=== PATIENT | male | born 1955 | race Caucasian/White ===

== ENCOUNTER 2023-01-09 13:42 | Emergency (ER) | payer MEDICARE, SELFPAY ==
[2023-01-09] VITALS (18 sets, daily range): BP systolic 124–208; BP diastolic 59–110; PULSE 70–123; RESP 15–28; O2SAT 89–98; BMI 35.9
--- NOTE | 2023-01-09 13:49 | CT_ITS ---
FINAL REPORT CLINICAL HISTORY: fall, head trauma on AC COMPARISON: None FINDINGS: Axial images of the head were obtained without contrast. Coronal reformatted images were also obtained. This study was performed with techniques to keep radiation doses as low as reasonably achievable (ALARA). Individualized dose reduction techniques using automated exposure control or adjustment of mA and/or kV according to the patient''s size were employed. There is motion artifact on many of the images decreasing sensitivity of this exam. There is generalized age-appropriate atrophy. Periventricular low-attenuation areas are seen consistent with mild chronic ischemic changes. There is no evidence of intracranial hemorrhage or mass. There is no definite evidence of acute infarct. There is no evidence of shift of the midline structures. No skull abnormality is seen on the bone window images. There is mild mucosal thickening of the right maxillary sinus. IMPRESSION: Motion artifact on many of the images decreases sensitivity of this exam. No definite acute intracranial abnormality identified. Atrophy and mild periventricular chronic ischemic changes. Reviewed, Interpreted and Dictated by Zeb Koroma III, MD Transcribed by Annalee Grossman Authenticated and [facility]
--- NOTE | 2023-01-09 13:49 | CT_ITS ---
FINAL REPORT CLINICAL HISTORY: fall, head trauma COMPARISON: None FINDINGS: Axial CT images of the cervical spine were obtained without contrast. Sagittal and coronal reformatted images were also obtained. This study was performed with techniques to keep radiation doses as low as reasonably achievable (ALARA). Individualized dose reduction techniques using automated exposure control or adjustment of mA and/or kV according to the patient''s size were employed. There is no evidence of fracture or dislocation. The bony alignment is normal. There is [id number] degenerative change. Multilevel osteophytes are noted with neural foraminal narrowing. There is mild central canal stenosis at C4-5 and C5-6. No paraspinous soft tissue abnormality is seen. Limited images of the upper thorax demonstrate moderate emphysema. There is abnormal soft tissue in the right apex favored to represent scar. IMPRESSION: No fracture or acute bony abnormality identified. Abnormal soft tissue right apex favored to represent scar. Follow-up CT chest in 6 months may be helpful. Reviewed, Interpreted and Dictated by Zeb Koroma III, MD Transcribed by Annalee Grossman Authenticated and [facility]
--- NOTE | 2023-01-09 13:53 | XR_ITS ---
FINAL REPORT CLINICAL HISTORY: Chest pain, right shoulder pain COMPARISON: None FINDINGS: A single portable view of the chest was obtained. Left subclavian pacer is present. Cardiomegaly is noted. Mild bibasilar opacities are favored to represent atelectasis. The bony thorax is intact. There is anterior dislocation of the right humerus at the glenohumeral joint. The left shoulder is incompletely imaged and may be dislocated as well. IMPRESSION: Mild bibasilar opacities, favor atelectasis. Anterior dislocation right humerus. Left shoulder incompletely imaged, may be dislocated as well. Reviewed, Interpreted and Dictated by Zeb Koroma III, MD Transcribed by Annalee Grossman Authenticated and [facility]
[2023-01-09 14:01] LABS: Basophils # 0.1 K/mm3 (0-0.2); Basophils % 0.4 % (0.1-2.0); Eosinophils # 0.3 K/mm3 (0.0-0.4); Eosinophils % 2.1 % (0.1-12.0); Hemoglobin 13.8 g/dL (12.2-16.2); Lymphocytes # 1.4 K/mm3 (0.7-4.5); Lymphocytes % 11.8 % (10-50); Mean Corpuscular Hemoglobin 32.3 pg (27.0-31.2); Mean Platelet Volume 8.2 fl (7.4-10.4); Monocytes # 0.6 K/mm3 (0.1-1.0); Monocytes % 5.3 % (1.7-9.3); Neutrophils # 9.7 K/mm3 (1.8-7.8); Neutrophils % 80.4 % (37.0-80.0); Platelet Count 203 K/mm3 (142-424); Red Blood Count 4.28 M/mm3 (4.20-5.40); Red Cell Distribution Width 15.7 % (11.5-17.5)
[2023-01-09 14:03] LABS: Chloride 108 mmol/L (98-107)
[2023-01-09 14:04] LABS: Potassium 4.7 mmoL/L (3.5-5.1); Sodium 142 mmol/L (136-145)
[2023-01-09 14:06] LABS: Alanine Aminotransferase 36 U/L (12-78); Aspartate Amino Transferase 62 U/L (14-36); Blood Urea Nitrogen 15 mg/dl (7-17); Creatinine Clearance Estimated 88 mL/min (50-200); Estimated Glomerular Filt Rate 45 ml/min (>60); GFR (African American) 54 ML/MIN (>60)
[2023-01-09 14:07] LABS: Albumin Level 4.1 g/dl (3.5-5.0); Albumin/Globulin Ratio 1.2 (1.1-1.8); Alkaline Phosphatase 105 U/L (38-126); Anion Gap 11.7 mEq/L (5-15); Bilirubin,Total 0.2 mg/dl (0.2-1.3); Calcium 8.2 mg/dl (8.4-10.2); Carbon Dioxide 27 mmol/L (22.0-30.0); Globulin 3.5 g/dL (1.3-3.2); Glucose 124 mg/dl (74-100); Total Protein,Serum 7.6 g/dl (6.3-8.2)
--- NOTE | 2023-01-09 14:07 | ECG_ITS ---
APPROVED REPORT Exam: Resting ECG HR:76 bpm ECG Measurements Heart Rate 76 AXES AZ 182 P 75 QRSd 194 QRS 45 QT 449 T 197 QTc 479 Conclusion ELECTRONIC VENTRICULAR PACEMAKER ABNORMAL RHYTHM ECG UNCONFIRMED REPORT Electronically signed by : Pablo Manning MD 01/10/2023 14:48:19
[2023-01-09 14:11] LABS: Activated Partial Thrombo Time 51.4 seconds (22.5-28.5)
--- NOTE | 2023-01-09 14:16 | HMH.EDGENADL ---
Discharge Plan Disposition Patient Disposition: Home, Self-Care Chief Complaint: Fall Referrals Follow up/Referrals: Xena Bernabe MD [Primary Care Provider] - See instructions Filipe Fine DO [Staff Physician] - See instructions Activity Restrictions/Add. Instructions Additional Instructions/Restrictions: At this time is felt you are safe to be discharged home. If new or worsening symptoms please do not hesitate to return the emergency department. Please follow-up with your family doctor in 7 to 10 days to see if your sutures are ready for removal. Please wear your sling and gradual follow-up with orthopedics for your dislocated shoulder which was put back into its joint today. Clinical Impressions Clinical Impression: ETOH abuse, Anterior shoulder dislocation, Forehead laceration Discharge ED Provider: Musa Samuels General Adult HPI <Josesito Paredes MD - Last Filed: 01/09/23 15:36> General Chief complaint: Fall Stated complaint: fall Time Seen by Provider: 01/09/23 13:49 Mode of Arrival: EMS Source of Information: Patient Limitations: No Limitations Description of Symptoms (Recalled from ER Triage Doc. by RN): Patient was brought in via [facility]. EMS was called by patients for an apparent fall. reports she left the house 2 hours prior to coming home and finding patient down. When EMS arrived patient was face down on the ground. Patient reports he has been drinking beer and whiskey today. Patient does take coumadin for AFIB. Patient does have a laceration above his right eye. History of Present Illness HPI narrative: 67-year-old male history of hypertension, hyperlipidemia, CAD, A-fib on warfarin, [place], CHF status post pacemaker defibrillator placement, presenting with intoxication and head trauma. EMS was called. Patient was left at home when his went to the grocery store. returned, patient was facedown and asleep versus unconscious. EMS was called and brought patient to the ER. Initially combative, but patient noncombative on arrival. Also admits to significant alcohol use. Confused, oriented only to person, complaining of right shoulder pain and right forehead pain, but denies blurry vision, double vision, nausea or vomiting, chest pain or shortness of breath. Does not remember the incident. Related Data Allergies Allergy/AdvReac Type Severity Reaction Status Date / Time No Known Allergies Allergy Verified 01/09/23 13:53 PFSH <Josesito Paredes MD - Last Filed: 01/09/23 15:36> [facility] Disclaimer: The information contained in this section may have been updated after the patient was seen, as this information can be updated by other users. Social History (Updated 01/09/23 @ 15:35 by Josesito Paredes MD) Smoking Status: Unknown if ever smoked alcohol intake: current current occupational status: unemployed Travel in the last 8 weeks: None <Josesito Paredes MD - Last Filed: 01/09/23 15:36> ROS Obtained: Yes All systems reviewed & no additional complaints except as documented Physical Exam <Josesito Paredes MD - Last Filed: 01/09/23 15:36> General General appearance: alert, in no apparent distress and appears intoxicated Head Head exam: normocephalic and other (2 cm laceration overlying right eyebrow) Eye Eye exam: Present normal appearance, PERRL, EOMI and conjunctival redness ENT ENT exam: Present mucous membranes moist Neck Neck exam: Present normal inspection, full ROM and trachea midline; Absent tenderness Respiratory Respiratory exam: Present wheezes (Bilaterally); Absent normal lung sounds bilaterally, respiratory distress, stridor, accessory muscle use or prolonged expiratory phase Cardiovascular Cardiovascular exam: Present regular rate and irregular rhythm Abdominal Exam Abdominal exam: Present soft; Absent distention, tenderness, guarding, rebound, rigidity or normal bowel sounds Extremities Exam Extremities exam: Present tenderness (Right shoulder posteriorly without outwar
[2023-01-09 14:19] LABS: INR 4.48 (0.9-1.1); Prothrombin Time 43.8 seconds (9.2-12.1)
[2023-01-09 14:30] LABS: Troponin I 0.02 ng/ml (0.00-0.034)
--- NOTE | 2023-01-09 17:03 | XR_ITS ---
PROCEDURE INFORMATION: Exam: XR Right Humerus Exam date and time: 01/09/2023 5:30 PM Age: 67 years old Clinical indication: Pain; Upper arm; Right TECHNIQUE: Imaging protocol: Radiologic exam of the right humerus. Views: 2 or more views. COMPARISON: CR XR CHEST PORTABLE 01/09/2023 2:38 PM FINDINGS: Bones/joints: Anterior inferior dislocation of the humerus from the glenohumeral joint. No displaced fracture fragments. Mild degenerative change of the acromioclavicular joint. Soft tissues: Normal. IMPRESSION: Anterior inferior dislocation of the humerus from the glenohumeral joint.
--- NOTE | 2023-01-09 17:03 | XR_ITS ---
PROCEDURE INFORMATION: Exam: XR Right Shoulder Exam date and time: 01/09/2023 5:30 PM Age: 67 years old Clinical indication: Pain; Shoulder; Right TECHNIQUE: Imaging protocol: Radiologic exam of the right shoulder. Views: 2 or more views. COMPARISON: CR XR CHEST PORTABLE 01/09/2023 2:38 PM FINDINGS: Bones/joints: Anterior inferior dislocation of the humerus from the glenohumeral joint. No displaced fracture fragments. Mild degenerative change of the acromioclavicular joint. Lungs: Suture material in the right lung. Soft tissues: Normal. IMPRESSION: Anterior inferior dislocation of the humerus from the glenohumeral joint.
--- NOTE | 2023-01-09 18:21 | PC.NURSE ---
pt continues to yell out, asked him what he needed, requested to sit up on side of bed, bedside table in front of him.
[2023-01-09 18:40] LABS: Troponin I 0.01 ng/ml (0.00-0.034)
--- NOTE | 2023-01-09 19:55 | PC.NURSE ---
Pt sitting on side of bedside, vitals collected, pt is a/o x 4 at this time, states he is not intoxicated he only had 1 beer today.
--- NOTE | 2023-01-09 21:02 | PC.NURSE ---
procedural consent signed placed in chart
--- NOTE | 2023-01-09 21:49 | XR_ITS ---
PROCEDURE INFORMATION: Exam: XR Right Shoulder Exam date and time: 01/09/2023 10:19 PM Age: 67 years old Clinical indication: Screening exam; Post reduction TECHNIQUE: Imaging protocol: Radiologic exam of the right shoulder. Views: 1 view. COMPARISON: CR XR SHOULDER RT MIN 2V 01/09/2023 5:30 PM FINDINGS: Bones/joints: Successful reduction of the right humeral dislocation. No displaced fracture fragments. Soft tissues: Normal. IMPRESSION: Successful reduction of the right humeral dislocation.
--- NOTE | 2023-01-09 21:50 | PC.NURSE ---
at bedside w/ patient at this time.
--- NOTE | 2023-01-09 22:02 | PC.NURSE ---
RAD in room at bedside at this time.
--- NOTE | 2023-01-09 22:23 | PC.NURSE ---
first attempt at reduction at 2200. XRAY taken at this time. reduction was not successful. 2nd attempt at reduction at 2205. xray taken at this time. R shoulder successfully reduced. sling placed at this time.
--- NOTE | 2023-01-09 23:21 | PC.NURSE ---
Lidia notified pt up for discharge, she is in route to transport him home
--- NOTE | 2023-01-09 23:37 | PC.NURSE ---
Pt forehead laceration cleansed with soap and water
[2023-01-10 00:21] VITALS: BP 134/95; PULSE 86; RESP 18; TEMP 36.6; O2SAT 96
--- NOTE | 2023-01-10 00:22 | PC.NURSE ---
D/C and follow up explained to pt Lidia. No additional questions a this time
== END 2023-01-10 00:23 | disposition home or self-care (01) ==
PROVIDERS: Emergency Medicine; Emergency Provider Emergency Medicine; PCP Family Medicine
DX: F10.10 Alcohol abuse, uncomplicated (principal); S43.014A Anterior dislocation of right humerus, initial encounter; W19.XXXA Unspecified fall, initial encounter; I48.0 Paroxysmal atrial fibrillation; I25.10 Atherosclerotic heart disease of native coronary artery without angina pectoris; I11.0 Hypertensive heart disease with heart failure; I50.9 Heart failure, unspecified; E78.5 Hyperlipidemia, unspecified; Z79.01 Long term (current) use of anticoagulants; Z95.0 Presence of cardiac pacemaker
CPT/HCPCS: 23650; 99152; 70450; 71045; 72125; 73020; 73030; 73060; 80053; 84484; 85025; 85610; 85730; 93005; 96361; 96374; 96375; 99285; J2704

== ENCOUNTER 2023-04-08 04:35 | Emergency (ER) | payer MEDICARE, SELFPAY ==
--- NOTE | 2023-04-08 04:34 | XR_ITS ---
PROCEDURE INFORMATION: Exam: XR Chest Exam date and time: 04/08/2023 4:35 AM Age: 68 years old Clinical indication: Cough and shortness of breath; Patient HX: Cough, SOA, copd; Additional info: SOB, copd TECHNIQUE: Imaging protocol: Radiologic exam of the chest. Views: 1 view. COMPARISON: CR XR CHEST PORTABLE 01/09/2023 2:38 PM FINDINGS: Tubes, catheters and devices: Left subclavian transvenous atrioventricular pacemaker is in expected position. Lungs: Coarse opacities are seen throughout the mid and lower portions of each lung, accentuated from prior. Pleural spaces: No pleural effusion. No pneumothorax. Heart/Mediastinum: Enlarged cardiac silhouette is unchanged from prior. Bones/joints: Old healed right rib fractures. IMPRESSION: Increasing bibasilar airspace opacities suggest pneumonitis or atelectasis. Stable moderate cardiomegaly.
[2023-04-08 04:35] VITALS: BP 148/94; PULSE 98; RESP 24; TEMP 37.1; O2SAT 96; BMI 35.2
[2023-04-08 04:42] LABS: Coronavirus 19, PCR Not Detected (NotDetected); Influenza A, PCR Not Detected (NotDetected); Influenza B, PCR Not Detected (NotDetected)
--- NOTE | 2023-04-08 04:54 | ECG_ITS ---
APPROVED REPORT Exam: Resting ECG HR:91 bpm ECG Measurements Heart Rate 91 AXES OR 206 P 69 QRSd 180 QRS -20 QT 382 T 126 QTc 431 Conclusion ELECTRONIC VENTRICULAR PACEMAKER ABNORMAL RHYTHM ECG UNCONFIRMED REPORT Electronically signed by : Pablo Manning MD 04/10/2023 17:32:45
--- NOTE | 2023-04-08 04:58 | PC.NURSE ---
RT notified of duo-neb tx, VBG blood left at bedside
[2023-04-08] MEDS: MAGNESIUM SULFATE IN WATER 2 GM/50 ML PIGGYBACK IV (04:59)
[2023-04-08 05:01] VITALS: BP 164/86; PULSE 102; O2SAT 95
[2023-04-08 05:01] LABS: Basophils % 0.2 % (0.1-2.0); Eosinophils # 0.1 K/mm3 (0.0-0.4); Eosinophils % 1.2 % (0.1-12.0); Hematocrit 34.5 % (42.0-52.0); Hemoglobin 11.1 g/dL (14.1-18.0); Lymphocytes # 0.7 K/mm3 (0.7-4.5); Lymphocytes % 8.5 % (10-50); Mean Corpuscular HGB Conc 32.1 g/dL (31.8-35.4); Mean Corpuscular Hemoglobin 29.9 pg (27.0-31.2); Mean Corpuscular Volume 93.2 fl (80-94); Mean Platelet Volume 7.5 fl (7.4-10.4); Monocytes # 0.4 K/mm3 (0.1-1.0); Monocytes % 4.3 % (1.7-9.3); Neutrophils # 7.1 K/mm3 (1.8-7.8); Neutrophils % 85.8 % (37.0-80.0); Platelet Count 129 K/mm3 (142-424); Red Cell Distribution Width 15.8 % (11.5-17.5); White Blood Count 8.3 K/mm3 (4.8-10.8)
[2023-04-08 05:04] LABS: Chloride 108 mmol/L (98-107); MANUAL DIFFERENTIAL MANUAL DIFFERENTIAL (MANUAL DIFF)
--- NOTE | 2023-04-08 05:04 | HMH.EDGENADL ---
Discharge Plan Disposition Patient Disposition: Home, Self-Care Prescriptions Prescriptions: New prednisone 50 mg tablet 50 mg PO DAILY 5 Days Qty: 5 0RF amoxicillin-pot clavulanate 875-125 mg tablet 1 tab PO BID 7 Days Qty: 14 0RF Referrals Follow up/Referrals: Xena Bernabe MD [Primary Care Provider] - See instructions Activity Restrictions/Add. Instructions Additional Instructions/Restrictions: Please take antibiotics and steroids as prescribed for treatment of COPD exacerbation. Please follow-up with your primary care provider. Please return to the emergency department if you develop any new or worsening symptoms or become concerned for your health. Clinical Impressions Clinical Impression: Acute exacerbation of chronic obstructive pulmonary disease Discharge ED Provider: Medardo Lepe Adult HPI General Chief complaint: Shortness of Breath/Dyspnea Stated complaint: difficulty breathing Time Seen by Provider: 04/08/23 04:39 Mode of Arrival: EMS Source of Information: Patient Limitations: No Limitations Description of Symptoms (Recalled from ER Triage Doc. by RN): Pt presents with complaints of SOA, hx COPD. Pt wears 3l/nc at home prn. Denies any chest pain. History of Present Illness HPI narrative: 68-year-old male, history of obesity, COPD on intermittent oxygen at home, presents with worsening shortness of breath. He reports that he got short of breath after walking up the stairs. He denies any significant chest pain. He reports that he has a chronic cough but it is not significantly more productive than normal. He denies any history of heart failure. He reports that his shortness of breath comes and goes, tonight it was there for couple hours prior to arrival. EMS reports that he was having significant dyspnea but improved after nebs and steroids in route, he got 125 Solu-Medrol in route. Related Data Previous Rx's Medication Instructions Recorded amoxicillin 875 mg-potassium 1 tab PO BID 7 days #14 tabs 04/08/23 clavulanate 125 mg tablet prednisone 50 mg tablet 50 mg PO DAILY 5 days #5 tabs 04/08/23 Allergies Allergy/AdvReac Type Severity Reaction Status Date / Time No Known Allergies Allergy Verified 01/09/23 13:53 [facility] Disclaimer: The information contained in this section may have been updated after the patient was seen, as this information can be updated by other users. Social History (Updated 01/09/23 @ 15:35 by Josesito Paredes MD) Smoking Status: Never smoker alcohol intake: current current occupational status: unemployed Travel in the last 8 weeks: None ROS Obtained: Yes All systems reviewed & no additional complaints except as documented Physical Exam General General appearance: alert Comment: Uncomfortable appearing secondary to dyspnea Head Head exam: atraumatic and normocephalic Eye Eye exam: Present normal appearance, PERRL and EOMI ENT ENT exam: Present normal oropharynx, TM's normal bilaterally and other (Scant dried blood in the right pinna) Neck Neck exam: Present normal inspection and full ROM Chest Chest inspection: Present normal inspection and symmetric chest wall rise; Absent tenderness Respiratory Respiratory exam: Present respiratory distress, wheezes, accessory muscle use and prolonged expiratory phase Cardiovascular Cardiovascular exam: Present normal rhythm and tachycardia Abdominal Exam Abdominal exam: Present soft and distention; Absent tenderness or guarding Extremities Exam Extremities exam: Present normal inspection; Absent edema or joint swelling Back Exam Back exam: Present normal inspection; Absent tenderness Neurological Exam Neurological exam: Present alert and oriented X3; Absent motor sensory deficit Psychiatric Psychiatric exam: Present normal affect and normal mood Skin Skin exam: Present warm, dry and normal color Lymphatic Lymphatic Findings: no adenopathy Medical Decision Making Medical Records Medical records reviewed: Yes I reviewed the patient's medical records. Cristhian Inquiry Pt receiving controlled substance: No Cristhian was queried for this patient: No Vital Signs: 04/08/23 04:35 04/08/23 05:05 04/08/23 05:05 Temperature 98.7 F Temperature Source Oral Pulse Rate 88 88 Pulse Rate [Left] 98 H Respiratory Rate 24 Blood Pressure Blood Pressure [Right Arm] 148/94 H Blood Pressure Mean [Right Arm] 112 Blood Pressure Source Blood Pressure Source [Right Arm] Automatic Cuff Blood Pressure Position Blood Pressure Position [Right Arm] Sitting 02 Sat by Pulse Oximetry 96 Oxygen Delivery Method Nasal Cannula Oxygen Flow Rate (LPM) 3 04/08/23 05:01 04/08/23 05:41 04/08/23 05:41 Temperature Temperature Source Pulse Rate 102 H 96 H 79 Pulse Rate [Left] Respiratory Rate Blood Pressure 164/86 H Blood Pressure [Right Arm] Blood Pressure Mean [Right Arm] Blood Pressure Source Blood Pressure Source [Right Arm] Blood Pressure Position Blood Pressure Position [Right Arm] 02 Sat by Pulse Oximetry 95 Oxygen Delivery Method Oxygen Flow Rate (LPM) 04/08/23 06:19 Temperature 98.7 F Temperature Source Oral Pulse Rate 92 H Pulse Rate [Left] Respiratory Rate 22 Blood Pressure 163/82 H Blood Pressure [Right Arm] Blood Pressure Mean [Right Arm] Blood Pressure Source Automatic Cuff Blood Pressure Source [Right Arm] Blood Pressure Position Sitting Blood Pressure Position [Right Arm] 02 Sat by Pulse Oximetry 94 L Oxygen Delivery Method Room Air Oxygen Flow Rate (LPM) Lab Data Lab results reviewed: Yes I reviewed the patient's lab results. Lab Results 04/08/23 04:30: SARS-CoV-2 (PCR) Not detected, Influenza A Untype (PCR) Not detected, Influenza Type B (PCR) Not detected 04/08/23 04:36: VBG pH 7.33, VBG pCO2 42.9, VBG pO2 43.2 H, VBG HCO3 21.9 L, VBG Total CO2 23.2, VBG O2 Saturation 74.8 H, VBG Base Excess -4.1 L 04/08/23 04:50: WBC 8.3, RBC 3.70 L, Hgb 11.1 L, Hct 34.5 L, MCV 93.2, MCH 29.9, MCHC 32.1, RDW 15.8, Plt Count 129 L, MPV 7.5, Neut % (Auto) 85.8 H, Lymph % (Auto) 8.5 L, Loving % (Auto) 4.3, Eos % (Auto) 1.2, Baso % (Auto) 0.2, Neut # (Auto) 7.1, Lymph # (Auto) 0.7, Loving # (Auto) 0.4, Eos # (Auto) 0.1, Baso # (Auto) 0.0, Total Counted 100, Neutrophils % (Manual) 86 H, Lymphocytes % (Manual) 14, Platelet Estimate Slight decrease, RBC Morphology Normal, Sodium 140, Potassium 4.6, Chloride 108 H, Carbon Dioxide 27, Anion Gap 9.6, BUN 25 H, Creatinine 1.10, Estimated Creat Clear 109, Estimated GFR 67, Est GFR ( Amer) 81, Glucose 104 H, Calcium 8.4, Total Bilirubin 0.3, AST 55, ALT 36, Alkaline Phosphatase 133 H, NT-Pro-B Natriuret Pep 819 H, Total Protein 7.1, Albumin 3.7, Globulin 3.4 H, Albumin/Globulin Ratio 1.1 04/08/23 04:50 04/08/23 04:50 Orders (Tests/Meds): ED MEDICATIONS Discontinued Medications Generic Name Dose Route Start Last Admin Trade Name Belloq PRN Reason Stop Dose Admin Acetaminophen 1,000 mg 04/08/23 05:53 04/08/23 05:58 Acetaminophen 500mg Tab PO 04/08/23 05:54 1,000 mg ONCE ONE Administration Albuterol/Ipratropium 3 ml 04/08/23 04:34 04/08/23 05:05 Ipratropium/Albuterol 3 Ml [facility] 04/08/23 04:35 3 ml ONCE ONE Administration Albuterol/Ipratropium 6 ml 04/08/23 05:25 04/08/23 05:40 Ipratropium/Albuterol 3 Ml [facility] 04/08/23 05:26 6 ml ONCE ONE Administration Amoxicillin/Clavulanate Potassium 1 each 04/08/23 06:21 04/08/23 06:33 Amoxicillin/Clavulanate Potassium 875/125mg Tablet PO 04/08/23 06:22 1 each ONCE ONE Administration Magnesium Sulfate 2 gm in 50 mls @ 50 mls/hr 04/08/23 04:34 04/08/23 04:59 Magnesium Sulfate 2gm/50ml Premix IV 04/08/23 05:33 50 mls/hr ONCE ONE Administration Ibuprofen 600 mg 04/08/23 05:53 04/08/23 05:58 Ibuprofen 600 Mg Tablet PO 04/08/23 05:54 600 mg ONCE ONE Administration ORDERS Category Date Time Status CXR --portable [XR chest portable] Stat Exams 04/08/23 04:34 Completed BNP [Brain Natriuretic Peptide] Stat Lab 04/08/23 04:50 Completed CBC w/Auto Diff [Complete Blood Count Auto Diff] Stat Lab 04/08/23 04:50 Completed CMP [Comprehensive Metabolic Panel] Stat Lab 04/08/23 04:50 Completed Rapid PCR Covid and Flu A/B Stat Lab 04/08/23 04:30 Completed VBG [Venous Blood Gas] Stat RT 04/08/23 04:36 Completed Medical Decision Narrative: [id number] male, presentation complicated by history of COPD on intermittent oxygen at home, obesity presents with worsening shortness of breath, wheezing. History was obtained via conversation with patient, EMS, chart review. On arrival, patient is afebrile, mildly tachycardic, satting appropriately on 3 L nasal cannula (reportedly uses 3 L as needed at home), moving all extremities spontaneously. Full physical exam performed and significant for dyspnea with diffuse wheezing and prolonged expiratory phase Differential includes but is not limited to COPD exacerbation, pneumonia, COVID, flu, heart failure. Patient was given 125 Solu-Medrol IV and route with EMS. She added on DuoNebs x 3 in ED, given IV magnesium for symptomatic management and correction of underlying abnormalities. Workup initiated including CBC CMP VBG chest x-ray EKG BNP. On re-evaluation, patient [remains afebrile, HD stable.] Work of breathing markedly improved after DuoNebs and magnesium. Patient maintaining sats off the nasal cannula Laboratory workup independently interpreted by me and significant for minimal CO2 retention, normal pH, creatinine stable from prior, mild thrombocytopenia, no leukocytosis. Imaging independently interpreted by me and significant for likely bibasilar atelectasis and cardiomegaly similar to prior, see radiology read for full review of final results. EKG independently interpreted by me and significant for ventricular paced rhythm, rate of 91, no ST changes that are Sgarbossa positive. On further reassessment, appropriately without nasal cannula. He reports that he is feeling much better and feels appropriate for discharge at this time. His is in agreement. Patient was given dose of Augmentin in ED and was discharged in stable condition with prescription for Augmentin and prednisone for COPD exacerbation. Return precautions given. Admission for COPD exacerbation was considered, but deemed unnecessary due to clinical improvement.. Given patient history, exam and workup, patient's presentation most likely represents COPD exacerbation. Procedures Risk/Benefits of Procedure(s) Were Explained: Yes Critical Care Critical Care Time Critical Care Time: No
[2023-04-08 05:05] VITALS: PULSE 88
[2023-04-08 05:05] LABS: Potassium 4.6 mmoL/L (3.5-5.1); Sodium 140 mmol/L (136-145)
[2023-04-08] MEDS: IPRATROPIUM/ALBUTEROL 3 ML NEB IH (05:05)
[2023-04-08 05:07] LABS: Alanine Aminotransferase 36 U/L (12-78); Alkaline Phosphatase 133 U/L (38-126); Aspartate Amino Transferase 55 U/L (17-59); Bilirubin,Total 0.3 mg/dl (0.2-1.3); Blood Urea Nitrogen 25 mg/dl (9-20); Creatinine Clearance Estimated 109 mL/min (50-200); Estimated Glomerular Filt Rate 67 ml/min (>60); GFR (African American) 81 ML/MIN (>60)
[2023-04-08 05:08] LABS: Albumin Level 3.7 g/dl (3.5-5.0); Albumin/Globulin Ratio 1.1 (1.1-1.8); Anion Gap 9.6 mEq/L (5-15); Calcium 8.4 mg/dl (8.4-10.2); Carbon Dioxide 27 mmol/L (22.0-30.0); Globulin 3.4 g/dL (1.3-3.2); Glucose 104 mg/dl (74-100); Total Protein,Serum 7.1 g/dl (6.3-8.2)
[2023-04-08 05:09] LABS: VBG Base Excess -4.1 mmol/L (-2.4-2.3); VBG HCO3 21.9 mmol/L (23-30); VBG Oxygen Saturation 74.8 % (50-70); VBG PCO2 42.9 mmol/L (35-51); VBG PH 7.33 mmol/L (7.31-7.41); VBG PO2 43.2 mmol/L (28-40); VBG Total CO2 23.2 mmol/L (23-27)
--- NOTE | 2023-04-08 05:11 | PC.NURSE ---
Pt unsure of daily medications, is in route will update when she arrives with list
[2023-04-08 05:17] LABS: Lymphocytes % 14 % (10-50); Neutrophils % 86 % (42-76); Platelet Estimate Slight Decrease; RBC Morphology Normal; Total Cells Counted 100
[2023-04-08 05:20] LABS: NT Pro Brain Natriuretic Pep. 819 pg/mL (0-125)
[2023-04-08] MEDS: IPRATROPIUM/ALBUTEROL 3 ML NEB 6 ML IH (05:40)
[2023-04-08 05:41] VITALS: PULSE 79; PULSE 96
[2023-04-08] MEDS: ACETAMINOPHEN 500MG TAB 1000 MG PO (05:58)
[2023-04-08] MEDS: IBUPROFEN 600 MG TABLET PO (05:58)
[2023-04-08 06:19] VITALS: BP 163/82; PULSE 92; RESP 22; TEMP 37.1; O2SAT 94
[2023-04-08] MEDS: AMOXICILLIN/CLAVULANATE POTASSIUM 875/125MG TABLET 1 EACH PO (06:33)
[2023-04-08 06:43] VITALS: BP 163/82; PULSE 103; RESP 18; TEMP 37.1; O2SAT 93
== END 2023-04-08 06:48 | disposition home or self-care (01) ==
PROVIDERS: Emergency Provider Emergency Medicine; PCP Family Medicine
DX: J44.1 Chronic obstructive pulmonary disease with (acute) exacerbation (principal); R06.02 Shortness of breath; R05.3 Chronic cough; Z95.0 Presence of cardiac pacemaker
CPT/HCPCS: 71045; 80053; 82803; 83880; 85007; 85025; 87636; 93005; 96365; 99285; J3475

== ENCOUNTER 2023-04-27 17:25 | Emergency (ER) | payer MEDICARE, SELFPAY ==
[2023-04-27 17:25] VITALS: BP 124/77; PULSE 71; RESP 18; O2SAT 96; BMI 36.2
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
[2023-04-27 19:39] VITALS: BP 156/78; PULSE 80; RESP 20; TEMP 36.7; O2SAT 98
== END 2023-04-27 19:41 | disposition home or self-care (01) ==
PROVIDERS: Emergency Provider Student in an Organized Health Care Education/Training Program
DX: M54.50 Low back pain, unspecified (principal); S70.02XA Contusion of left hip, initial encounter; F10.90 Alcohol use, unspecified, uncomplicated; J44.9 Chronic obstructive pulmonary disease, unspecified; Z79.01 Long term (current) use of anticoagulants; V48.0XXA Car driver injured in noncollision transport accident in nontraffic accident, initial encounter
CPT/HCPCS: 99285